=== PATIENT | female | born 1995 | race African-American/Black ===

== ENCOUNTER 2019-01-10 21:22 | Inpatient (IN) | payer OTHER ==
[2019-01-10 22:05] VITALS: BMI 28.8
--- NOTE | 2019-01-11 01:23 | HP ---
CIWA Score - Admission Criteria [facility]ASAS Guidelines: Admission for Medically Managed Detox: Requires at least one of the followin. CIWA greater than 12 2. Seizures within the past 24 hours 3. Delirium tremens within the past 24 hours 4. Hallucinations within the past 24 hours 5. Acute intervention needed for co occurring medical disorder 6. Acute intervention needed for co occurring psychiatric disorder 7. Severe withdrawal that cannot be handled at a lower level of care (continued vomiting, continued diarrhea, abnormal vital signs) requiring intravenous medication and/or fluids 8. Admission ROS S - HPI Chief Complaint: Seeking admission to Rehab Allergies/Adverse Reactions: Allergies Allergy/AdvReac Type Severity Reaction Status Date / Time peanut AdvReac Severe Difficulty Verified 01/10/19 21:58 Breathing acetaminophen [From Tylenol] AdvReac Intermediate Swelling Verified 01/10/19 21: 58 History of Present Illness: 23 years old female with a long history of cocaine dependence is seeking admission to Rehab. This is her first admission to [facility] and first admission to Rehab. She has medical history of Seizures and psych history of PTSD, bipolar, borderline personality disorder. She denies suicidal ideation at this this time Exam Limitations: No Limitations - Ebola screening Have you traveled outside of the country in the last 21 days: No (N) Have you had contact with anyone from an Ebola affected area: No Do you have a fever: No - Review of Systems Constitutional: No Symptoms Reported EENT: reports: No Symptoms Reported Respiratory: reports: No Symptoms reported Cardiac: reports: No Symptoms Reported GI: reports: No Symptoms Reported : reports: No Symptoms Reported Musculoskeletal: reports: No Symptoms Reported Integumentary: reports: No Symptoms Reported Neuro: reports: No Symptoms reported Endocrine: reports: No Symptoms Reported Hematology: reports: No Symptoms Reported Psychiatric: reports: No Sypmtoms Reported, Mood/Affect Appropiate, Orientated x3 Other Systems: Reviewed and Negative Patient History - Patient Medical History Hx Anemia: No Hx Asthma: No Hx Chronic Obstructive Pulmonary Disease (COPD): No Hx Cancer: No Hx Cardiac Disorders: No Hx Congestive Heart Failure: No Hx Hypertension: No Hx Hypercholesterolemia: No Hx Pacemaker: No HX Cerebrovascular Accident: No Hx Seizures: Yes (Tegretol) Hx Dementia: No Hx Diabetes: No Hx Gastrointestinal Disorders: No Hx Liver Disease: No Hx Genitourinary Disorders: No Hx Sexually Transmitted Disorders: No Hx Renal Disease (ESRD): No Hx Thyroid Disease: No Hx Human Immunodeficiency Virus (HIV): No (Never tested) Hx Hepatitis C: No Hx Depression: No Hx Suicide Attempt: No (Denies suicidal ideation at this time) Hx Bipolar Disorder: No Hx Schizophrenia: No - Patient Surgical History Past Surgical History: No - PPD History Previous Implant?: Yes Documented Results: Negative w/o proof Implanted On Prior R Admission?: No PPD to be Administered?: Yes - Reproductive History Patient is a Female of Child Bearing Age (11 -55 yrs old): Yes Last Menstrual Period: 12/20/18 Patient : No - Smoking Cessation Smoking history: Never smoked Have you smoked in the past 12 months: No Hx Chewing Tobacco Use: No Initiated information on smoking cessation: No - Substance & Tx. History Hx Alcohol Use: No Hx Substance Use: Yes Substance Use Type: Cocaine Hx Substance Use Treatment: No - Substances abused Cocaine Substance route: Inhalation Frequency: Daily Amount used: 3 bags Age of first use: 17 Date of last use: 01/10/19 Admission Physical Exam [facility] - Vital Signs Vital Signs: Vital Signs - 24 hr 01/10/19 01/10/19 21:48 23:37 Temperature 98.3 F 98.3 F Pulse Rate 80 80 Respiratory 17 17 Rate Blood Pressure 101/62 101/62 - Physical General Appearance: Yes: Within Normal Limits, Disheveled HEENTM: Yes: Within Normal Limits Respiratory: Yes: Lungs Clear, Normal Breath Sounds, No Respiratory Distress Neck: Yes: Supple Breast: Yes: Breast Exam Deferred Cardiology: Yes: Regular Rhythm, Regular Rate Abdominal: Yes: Normal Bowel Sounds Genitourinary: Yes: Within Normal Limits Back: Yes: Normal Inspection Musculoskeletal: Yes: Within Normal Limits Extremities: Yes: Within Normal Limits Neurological: Yes: Within Normal Limits Integumentary: Yes: Warm Lymphatic: Yes: Within Normal Limits - Diagnostic (1) Cocaine dependence Current Visit: Yes Status: Chronic Qualifiers: Substance use status: uncomplicated Qualified Code(s): F14.20 - Cocaine dependence, uncomplicated (2) Nicotine dependence Current Visit: Yes Status: Chronic (3) Seizure Current Visit: Yes Status: Chronic Cleared for Admission S - Detox or Rehab [facility] Level of Care: Observation Bed Claeared for Rehab Admission: Yes Breathalyzer - Breathalyzer Breathalyzer: 0 Urine Drug Screen - Test Device Lot number: [id number] Expiration date: 09/05/20 - Control Is test valid?: Yes - Results Drug screen NEGATIVE: Yes Inpatient Rehab Admission - Rehab Decision to Admit Inpatient rehab admission?: Yes - Initial Determination Are CD services needed?: No Free of communicable disease: Yes Not in need of hospitalization: Yes - Rehab Admission Criteria Previous failed treatment: Yes Poor recovery environment: Yes Comorbidities: Yes Lacks judgement: No Patient is meeting Inpatient Rehab admission criteria:: Yes
[2019-01-11] MEDS ORDERED: MENTHOL/PHENOL 1 EACH UD MM PRN (01:31)
[2019-01-11] MEDS ORDERED: LOPERAMIDE HCL 2 MG CAPSULE PO PRN (01:31)
[2019-01-11] MEDS ORDERED: IBUPROFEN 400 MG TABLET (FP) PO PRN (01:31)
[2019-01-11] MEDS ORDERED: guaiFENesin 200 MG/10 ML 10 ML UNIT-DOSE CUPS PO PRN (01:31)
[2019-01-11] MEDS ORDERED: MAGNESIUM HYDROX 2400MG/30ML ORAL SUSPENSION 30 ML CUP PO PRN (01:31)
[2019-01-11] MEDS ORDERED: P-EPHED 60MG/TRIPROLIDI 2.5MG TABLET PO PRN (01:31)
[2019-01-11] MEDS ORDERED: MAG HYDROX/AL HYDROX/SIMETH 30 ML UNIT-DOSE CUP PO PRN (01:31)
[2019-01-11] MEDS ORDERED: MAGNESIUM CITRATE 300 ML BOTTLE PO PRN (01:31)
[2019-01-11] MEDS ORDERED: TUBERCULIN PPD 5 TU/0.1ML VIAL ID ONE (02:35)
[2019-01-11] MEDS ORDERED: PT OWN MED DRAWER 7, Y5N ONE (08:18)
--- NOTE | 2019-01-11 09:59 | CONSULT ---
[facility] Psychiatric Consult - Data Date of interview: 01/11/19 Admission source: [facility] Identifying data: VAMSHI Chaudhry asked patient in the presence of internal communications writer to see the Psychiatric Mental Nurse Practitioner. Patient rolled her eyes and covered her head with the blank. Psychiatric consultation refused.
[2019-01-11] MEDS: PRENATAL VITAMINS W/ FOLIC ACID TABLET (FP) PO SCH (10:39)
[2019-01-11] MEDS: carBAMazepine 200 MG TABLET PO SCH ×2 (10:39→22:02)
--- NOTE | 2019-01-11 11:31 | EKG ---
Test Reason : Blood Pressure : / mmHG Vent. Rate : 062 BPM Atrial Rate : 062 BPM P-R Int : 146 ms QRS Dur : 072 ms QT Int : 412 ms P-R-T Axes : 063 085 067 degrees QTc Int : 418 ms NORMAL SINUS RHYTHM NORMAL ECG NO PREVIOUS ECGS AVAILABLE Confirmed by DYLAN CABRERA MD ([id number]) on 01/11/2019 11:31:00 AM Referred By: Nick Sánchez Confirmed By:DYLAN CABRERA MD
[2019-01-11 15:00] LABS: HEMATOCRIT 35.6 % (32.4-45.2); HEMOGLOBIN 11.4 GM/dL (10.7-15.3); MCH 27.8 pg (25.7-33.7); MEAN CELL VOLUME 86.8 fl (80-96); MEAN PLT VOLUME 7.9 fl (7.5-11.1); PLATELET COUNT 342 K/MM3 (134-434); RDW 12.9 % (11.6-15.6); WHITE BLOOD COUNT 4.5 K/mm3 (4.0-10.0)
[2019-01-11 15:16] LABS: ALBUMIN 3.1 g/dl (3.4-5.0); BILIRUBIN,TOTAL 0.2 mg/dL (0.2-1); BLOOD UREA NITROGEN 7.7 mg/dL (7-18); CALCIUM 9.2 mg/dL (8.5-10.1); CREATININE 0.8 mg/dL (0.55-1.3); POTASSIUM 4.4 mmol/L (3.5-5.1); TOT PROT 6.9 g/dl (6.4-8.2)
[2019-01-11] MEDS ORDERED: MELATONIN 5 MG TABLETS PO PRN (22:00)
[2019-01-11] MEDS: THIAMINE HCL 100 MG TABLET (FP) PO SCH (22:02)
[2019-01-12] MEDS ORDERED: PT OWN MED DRAWER 7, Y5N ONE ×2 (09:02→21:12)
[2019-01-12] MEDS: carBAMazepine 200 MG TABLET PO SCH ×2 (10:07→21:12)
[2019-01-12] MEDS: PRENATAL VITAMINS W/ FOLIC ACID TABLET (FP) PO SCH (10:07)
--- NOTE | 2019-01-12 15:06 | PN ---
[facility] Progress Note Note: Laboratory Last Values WBC 4.5 K/mm3 (4.0-10.0) 01/11/19 10:00 RBC 4.10 M/mm3 (3.60-5.2) 01/11/19 10:00 Hgb 11.4 GM/dL (10.7-15.3) 01/11/19 10:00 Hct 35.6 % (32.4-45.2) 01/11/19 10:00 MCV 86.8 fl (80-96) 01/11/19 10:00 MCH 27.8 pg (25.7-33.7) 01/11/19 10:00 MCHC 32.0 g/dl (32.0-36.0) 01/11/19 10:00 RDW 12.9 % (11.6-15.6) 01/11/19 10:00 Plt Count 342 K/MM3 (134-434) 01/11/19 10:00 MPV 7.9 fl (7.5-11.1) 01/11/19 10:00 Sodium 140 mmol/L (136-145) 01/11/19 10:00 Potassium 4.4 mmol/L (3.5-5.1) 01/11/19 10:00 Chloride 108 mmol/L (98-107) H 01/11/19 10:00 Carbon Dioxide 26 mmol/L (21-32) 01/11/19 10:00 Anion Gap 7 MMOL/L (8-16) L 01/11/19 10:00 BUN 7.7 mg/dL (7-18) 01/11/19 10:00 Creatinine 0.8 mg/dL (0.55-1.3) 01/11/19 10:00 Est GFR (CKD-EPI)AfAm 118.76 01/11/19 10:00 Est GFR (CKD-EPI)NonAf 102.47 01/11/19 10:00 Random Glucose 95 mg/dL (74-106) 01/11/19 10:00 Calcium 9.2 mg/dL (8.5-10.1) 01/11/19 10:00 Total Bilirubin 0.2 mg/dL (0.2-1) 01/11/19 10:00 AST 15 U/L (15-37) 01/11/19 10:00 ALT 23 U/L (13-61) 01/11/19 10:00 Alkaline Phosphatase 54 U/L (45-117) 01/11/19 10:00 Total Protein 6.9 g/dl (6.4-8.2) 01/11/19 10:00 Albumin 3.1 g/dl (3.4-5.0) L 01/11/19 10:00 POC Urine HCG, Qual Negative 01/11/19 01:06 Carbamazepine <0.5 01/11/19 10:00 RPR Titer Nonreactive (NONREACTIVE) 01/11/19 10:00 tegretol level <0.5 on tegretol 500 mgs po bid close monitoring repeat tegretol on 01/14/19
[2019-01-12 15:13] LABS: EPI CELLS 3.8 /HPF (0-5/HPF); HYALINE CASTS 13 /lpf (0-8); URINE APPEARANCE CLOUDY; URINE BACTERIA 8.9 /hpf (NEGATIVE); URINE BILIRUBIN NEGATIVE (NEGATIVE); URINE COLOR YELLOW; URINE GLUCOSE (UA) NEGATIVE (NEGATIVE); URINE KETONE TRACE (NEGATIVE); URINE LEUK ESTERASE 2+ (NEGATIVE); URINE NITRITE NEGATIVE (NEGATIVE); URINE PROTEIN NEGATIVE (NEGATIVE); URINE RBC 3 /hpf (0-4); URINE UROBILINOGEN 0.2 mg/dL (0.2-1.0); URINE WBC 32 /hpf (0-5)
[2019-01-12 15:39] LABS: URINE CRYSTALS 0-1 CALCIUM OXALATE /hpf
--- NOTE | 2019-01-12 15:41 | PN ---
[facility] Progress Note Note: addendum patient is on tegretol 200 mgs po bid
[2019-01-12] MEDS: THIAMINE HCL 100 MG TABLET (FP) PO SCH (21:11)
--- NOTE | 2019-01-13 01:38 | PN ---
[facility] Progress Note Note: Called to see patient because change in patient status. States patient was asleep and at 1:10 am was seen in the lea w/ unsteady gait and unable to respond verbally. Patient admitted on 01/11 w/a hx cocaine use disorder and seizure disorder. Patient on Tegretol. 01/11/19: Carbamazepine level < 5 Assessment: Patient sitting in chair and responding to verbal commands. BHG=; Gait is unsteady. Opening mouth and thrusting tongue unable to obtain complete visualization. No lesions noted. No dyspnea. Lungs CTA. VALARIE. BGM = 90; Pulse ox = 99% Vital Signs - 24 hr 01/12/19 01/13/19 03:30 01:38 Temperature 98.4 F Pulse Rate 90 Respiratory 16 16 Rate Blood Pressure 109/73 Sent to [facility] ED for eval. Discussed w/ Med Provider in ED. Patient to return to [facility] post eval. Patient assisted self onto EMS stretcher and transported.
--- NOTE | 2019-01-13 09:13 | PN ---
[facility] Progress Note Note: patient returned from [facility],alert,oriented x 3,mentioned I am fine Vital Signs Temperature 97.0 F L 01/13/19 09:08 Pulse Rate 71 01/13/19 09:08 Respiratory Rate 18 01/13/19 09:08 Blood Pressure 118/71 01/13/19 09:08 O2 Sat by Pulse Oximetry (%) has ct of head done in [place] at [email or web address]pending on official report augmentin 875 mgs po bid for 7 days for sinusitis patient is afebrile continue augmentin 875 mgs po bid for 7 days seizure precaution psychiatric reevaluation for medications continue tegretal 200 mgs po bid close monitoring
[2019-01-13] MEDS: PRENATAL VITAMINS W/ FOLIC ACID TABLET (FP) PO SCH (09:34)
[2019-01-13] MEDS: carBAMazepine 200 MG TABLET PO SCH ×2 (09:34→21:24)
[2019-01-13] MEDS: AMOX TR/POT CLAV 875MG/125MG TABLETS (FP) PO SCH (17:05)
[2019-01-13] MEDS: THIAMINE HCL 100 MG TABLET (FP) PO SCH (21:24)
[2019-01-14] MEDS: AMOX TR/POT CLAV 875MG/125MG TABLETS (FP) PO SCH ×2 (07:39→17:09)
[2019-01-14] MEDS ORDERED: EPINEPHrine 1:1,000 0.3 MG/0.3 ML SYR IM PRN (08:47)
[2019-01-14] MEDS: PRENATAL VITAMINS W/ FOLIC ACID TABLET (FP) PO SCH (10:25)
[2019-01-14] MEDS: carBAMazepine 200 MG TABLET PO SCH ×2 (10:25→21:47)
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
[2019-01-14] MEDS ORDERED: OLANZapine 10 MG TABLET PO ONE (12:00)
[2019-01-14] MEDS: LITHIUM CARBONATE 300 MG CAPSULE (FP) PO SCH ×2 (13:00→21:47)
[2019-01-14] MEDS: buPROPion HCL 75 MG TABLET PO SCH ×2 (13:00→17:09)
[2019-01-14] MEDS ORDERED: PT OWN MED DRAWER 7, Y5N ONE ×2 (16:44→19:21)
[2019-01-14] MEDS: OLANZapine 10 MG TABLET PO SCH (21:47)
[2019-01-14] MEDS: THIAMINE HCL 100 MG TABLET (FP) PO SCH (21:47)
[2019-01-15] MEDS: AMOX TR/POT CLAV 875MG/125MG TABLETS (FP) PO SCH ×2 (07:47→16:48)
[2019-01-15] MEDS: carBAMazepine 200 MG TABLET PO SCH ×2 (10:36→21:43)
[2019-01-15] MEDS: buPROPion HCL 75 MG TABLET PO SCH ×2 (10:36→18:07)
[2019-01-15] MEDS: PRENATAL VITAMINS W/ FOLIC ACID TABLET (FP) PO SCH (10:36)
[2019-01-15] MEDS: LITHIUM CARBONATE 300 MG CAPSULE (FP) PO SCH ×2 (10:36→21:43)
[2019-01-15] MEDS ORDERED: PT OWN MED DRAWER 7, Y5N ONE ×2 (17:59→19:32)
[2019-01-15] MEDS: OLANZapine 10 MG TABLET PO SCH (21:44)
[2019-01-15] MEDS: THIAMINE HCL 100 MG TABLET (FP) PO SCH (21:44)
[2019-01-16] MEDS: AMOX TR/POT CLAV 875MG/125MG TABLETS (FP) PO SCH ×2 (07:40→17:30)
[2019-01-16] MEDS ORDERED: PT OWN MED DRAWER 7, Y5N ONE (08:47)
[2019-01-16] MEDS: buPROPion HCL 75 MG TABLET PO SCH ×2 (09:13→18:30)
[2019-01-16] MEDS: PRENATAL VITAMINS W/ FOLIC ACID TABLET (FP) PO SCH (09:13)
[2019-01-16] MEDS: LITHIUM CARBONATE 300 MG CAPSULE (FP) PO SCH ×2 (09:13→22:01)
[2019-01-16] MEDS: carBAMazepine 200 MG TABLET PO SCH ×2 (09:13→22:01)
[2019-01-16] MEDS ORDERED: ONDANSETRON *ODT* 4 MG TABLET SL ONE (13:58)
--- NOTE | 2019-01-16 14:01 | PREP.REFER ---
HIV PrEP/PEP - PrEP HIV Risk Assessment When was your last HIV test?: none HIV Test offered: Accepted Are you concerned about any sexual encounters past 6 months?: No Have you had a STI in the last 6 months?: No Have you shared needles or other equipment?: No Are you interested in daily medication to help prevent HIV?: No (patient denies any risk factors, but agreed to an HIV test.) Recommendation: None at this time
[2019-01-16] MEDS: THIAMINE HCL 100 MG TABLET (FP) PO SCH (22:02)
[2019-01-16] MEDS: OLANZapine 10 MG TABLET PO SCH (22:02)
[2019-01-17] MEDS: AMOX TR/POT CLAV 875MG/125MG TABLETS (FP) PO SCH ×2 (07:36→17:40)
[2019-01-17] MEDS: carBAMazepine 200 MG TABLET PO SCH ×2 (10:22→21:19)
[2019-01-17] MEDS: PRENATAL VITAMINS W/ FOLIC ACID TABLET (FP) PO SCH (10:22)
[2019-01-17] MEDS: buPROPion HCL 75 MG TABLET PO SCH ×2 (10:22→17:40)
[2019-01-17] MEDS: LITHIUM CARBONATE 300 MG CAPSULE (FP) PO SCH ×2 (10:23→21:19)
[2019-01-17] MEDS ORDERED: PT OWN MED DRAWER 7, Y5N ONE ×2 (10:24→16:34)
[2019-01-17] MEDS: THIAMINE HCL 100 MG TABLET (FP) PO SCH (21:18)
[2019-01-17] MEDS: OLANZapine 10 MG TABLET PO SCH (21:18)
[2019-01-18] MEDS: AMOX TR/POT CLAV 875MG/125MG TABLETS (FP) PO SCH ×2 (07:18→17:42)
[2019-01-18] MEDS: PRENATAL VITAMINS W/ FOLIC ACID TABLET (FP) PO SCH (10:26)
[2019-01-18] MEDS: buPROPion HCL 75 MG TABLET PO SCH ×2 (10:27→17:42)
[2019-01-18] MEDS: LITHIUM CARBONATE 300 MG CAPSULE (FP) PO SCH ×2 (10:27→21:24)
[2019-01-18] MEDS: carBAMazepine 200 MG TABLET PO SCH ×2 (10:27→21:24)
[2019-01-18] MEDS ORDERED: PT OWN MED DRAWER 7, Y5N ONE ×3 (10:35→19:37)
[2019-01-18] MEDS: OLANZapine 10 MG TABLET PO SCH (21:24)
[2019-01-18] MEDS: THIAMINE HCL 100 MG TABLET (FP) PO SCH (21:24)
[2019-01-19] MEDS ORDERED: PT OWN MED DRAWER 7, Y5N ONE ×2 (08:57→17:52)
[2019-01-19] MEDS: AMOX TR/POT CLAV 875MG/125MG TABLETS (FP) PO SCH ×2 (09:00→17:52)
[2019-01-19] MEDS: carBAMazepine 200 MG TABLET PO SCH (09:06)
[2019-01-19] MEDS: LITHIUM CARBONATE 300 MG CAPSULE (FP) PO SCH (09:06)
[2019-01-19] MEDS: PRENATAL VITAMINS W/ FOLIC ACID TABLET (FP) PO SCH (09:07)
[2019-01-19] MEDS: buPROPion HCL 75 MG TABLET PO SCH ×2 (09:07→17:52)
--- NOTE | 2019-01-19 18:50 | PN ---
Psychiatric Progress Note Vital Signs: Vital Signs Period Temp Pulse Resp BP Sys/Grande Pulse Ox Last 24 Hr 18 Date of Session: 01/19/19 Chief Complaint:: " I am hearing voices telling me to kill people. I am scared. " HPI: Day 8 of rehabilitation for this 23 y/o AA female currently addressing JOANIE (cocaine) co-morbid with Schizoaffective Disorder. Psychiatric consultation is prompted by patient's complaint of command auditory hallucinations to kill people indiscriminately. Ms Barriga is immediately placed under Constant Observation (health technical writer observes RN currently watching the patient at arm's length). ROS: Unremarkable. No somatic complaint offered. Patient is alert and fully oriented. No evidence of a cognitive impairment. Conversant and goal-directed. Noted current treatment with anticonvulsant medication (carbamazepine) for seizure disorder. Current Medications: Active Medications Generic Name Dose Route Start Last Admin Trade Name Freq PRN Reason Stop Dose Admin Al Hydroxide/Mg Hydroxide 30 ml 01/11/19 01:31 Mylanta Oral Suspension - PO Q6H PRN DYSPEPSIA Amoxicillin/Clavulanate Potassium 1 tab 01/13/19 17:30 01/19/19 17:52 Augmentin - 875mg Tablet PO 1 tab BID@0800,1730 FRANSISCO Administration Bupropion HCl 75 mg 01/14/19 12:00 01/19/19 17:52 Wellbutrin - PO 75 mg BID@1000,1800 FRANSISCO Administration Carbamazepine 200 mg 01/11/19 10:00 01/19/19 09:06 Tegretol - PO 200 mg BID FRANSISCO Administration Eucalyptus/Menthol/Phenol/Sorbitol 1 each 01/11/19 01:31 Cepastat Lozenge - MM Q4H PRN SORE THROAT Guaifenesin 10 ml 01/11/19 01:31 Robitussin - PO Q6H PRN COUGH Ibuprofen 400 mg 01/11/19 01:31 Motrin - PO Q6H PRN Pain level 4-6 [place] Carbonate 300 mg 01/14/19 12:00 01/19/19 09:06 Eskalith - PO 300 mg BID FRANSISCO Administration Loperamide HCl 4 mg 01/11/19 01:31 Imodium - PO Q6H PRN DIARRHEA Magnesium Citrate 300 ml 01/11/19 01:31 Citroma - PO Q48H PRN CONSTIPATION Magnesium Hydroxide 30 ml 01/11/19 01:31 Milk Of Magnesia - PO DAILY PRN CONSTIPATION Melatonin 5 mg 01/11/19 22:00 Melatonin PO HS PRN INSOMNIA Olanzapine 10 mg 01/14/19 22:00 01/18/19 21:24 Zyprexa - PO 10 mg HS FRANSISCO Administration Multivit/Folic Acid/Iron 1 tab 01/11/19 10:00 01/19/19 09:07 Vitamins (Sjr) - PO 1 tab DAILY FRANSISCO Administration Pseudoephedrine/Triprolidine 1 combo 01/11/19 01:31 Actifed - PO TID PRN NASAL CONGESTION Thiamine HCl 100 mg 01/11/19 22:00 01/18/19 21:24 Vitamin B1 - PO Not Given HS FRANSISCO Medication(s) Change(s): Medications revisited. No justification to modify the current regimen. Further titration will be implemented on the psychiatric inpatient service at the receiving hospital. Medications are listed above (see details). Current Side Effect: No Lab tests ordered: No Lab tests reviewed: Yes Provider note:: Called to evaluate this patient who presents with acute auditory hallucinations commanding her to kill people. Chart reviewed. Psychiatrist Dr Bates's note of 01/11/19 : read and appreciated. Patient is interviewed in the presence of female nurse VAMSHI Licona. Patient is verbal, cooperative and visibly anxious. She confirms hearing voices urging her to assault + kill people anywhere. Ms Barriga is concerned about these voices. She reports that " the voices were with me when my father and my stepmother visited me her earlier today but I did not tell them anything because I was afraid that they would be worried about me." Patient is unpredictable. Noted history of multiple episodes of impulsive behaviors (suicide attempts via jumping into traffic, train tracks) in response to hallucinatory commands. This patient is NOT suitable for treatment in a free-standing substance abuse treatment center. Ms Barriga is currently psychotic and she could pose an immediate danger to others (and possibly to self). Patient needs a HIGHER level of psychiatric care. She will be transferred to the psychiatric emergency department at [facility] for appropriate management and safety. I have contacted [facility] at [phone] : spoke to nurse Oliveros. Case is endorsed. I made nurse Oliveros aware this patient's high risk status (risk of escalation + harm to others or self + potential for elopement). I have advised nurse Arlin to maintain vigilance (1:1 observatiion) while [atient awaits psychiatric evaluation. She agrees. Nurse Oliveros responds that the patient can be sent to [facility] as soon as arrangements for transportation made. Fred is in agreement. Case discussed with nurse on duty at [place] [address] [address] : instructed to secure transportation via EMS/[place] [employer] to optimize secure transfer to [facility] Emergency Department (psychiatric section). Disposition discussed with medical PROFESSIONAL SERVICES CONSULTANT Rachell Rothman. Total face to face time:: 65 Mental Status Exam - Mental Status Exam Alert and Oriented to: Time, Place, Person Cognitive Function: Grossly Intact Patient Appearance: Disheveled, Bizarre Mood: Anxious Affect: Inappropriate Patient Behavior: Cooperative Speech Pattern: Clear Voice Loudness: Normal Thought Process: Goal Oriented Thought Disorder: Bizarre Hallucinations: Auditory (hears voices commanding her to kill people) Suicidal Ideation: Denies Homicidal Ideation: Denies Insight/Judgement: Poor Sleep: Fair Appetite: Good Gait/Station: Normal Psychiatric Treatment Plan - Problem List (1) Psychosis Current Visit: Yes Comment: . (2) Schizoaffective disorder Current Visit: Yes Comment: . (3) Cocaine dependence Current Visit: Yes Qualifiers: Substance use status: uncomplicated Qualified Code(s): F14.20 - Cocaine dependence, uncomplicated Comment: . (4) Nicotine dependence Current Visit: Yes Comment: .
--- NOTE | 2019-01-19 19:29 | PN ---
[facility] Progress Note Note: Patient has made statements that she wants to physically harm others. Psych consult initiated and patient seen by Dr. Braga. Patient is medically stable and can be discharged. Per Dr. Braga, patient will be transferred to [facility]
--- NOTE | 2019-01-19 19:51 | DS ---
[facility] Rehab Discharge Summary - [facility] Rehab Discharge Summary Admission Date: 01/11/19 Discharge Date: 01/19/19 - History Present History: Cocaine dependence Additional Comments: Hx of cocaine use disorder seeking admission to Rehab. Pertinent Past History: She has medical history of Seizures. MHHx: PTSD, bipolar, borderline personality disorder. She denied suicidal ideation at admission. - Discharge Physical Exam Vital Signs: Vital Signs Temperature 98.2 F 01/18/19 07:08 Pulse Rate 99 H 01/18/19 07:08 Respiratory Rate 18 01/19/19 03:30 Blood Pressure 111/71 01/18/19 07:08 O2 Sat by Pulse Oximetry (%) Pertinent Admission Physical Exam Findings: Hx cocaine dependence and meets requirements for admission to Rehab. Laboratory Last Values WBC 4.5 K/mm3 (4.0-10.0) 01/11/19 10:00 RBC 4.10 M/mm3 (3.60-5.2) 01/11/19 10:00 Hgb 11.4 GM/dL (10.7-15.3) 01/11/19 10:00 Hct 35.6 % (32.4-45.2) 01/11/19 10:00 MCV 86.8 fl (80-96) 01/11/19 10:00 MCH 27.8 pg (25.7-33.7) 01/11/19 10:00 MCHC 32.0 g/dl (32.0-36.0) 01/11/19 10:00 RDW 12.9 % (11.6-15.6) 01/11/19 10:00 Plt Count 342 K/MM3 (134-434) 01/11/19 10:00 MPV 7.9 fl (7.5-11.1) 01/11/19 10:00 Sodium 140 mmol/L (136-145) 01/11/19 10:00 Potassium 4.4 mmol/L (3.5-5.1) 01/11/19 10:00 Chloride 108 mmol/L (98-107) H 01/11/19 10:00 Carbon Dioxide 26 mmol/L (21-32) 01/11/19 10:00 Anion Gap 7 MMOL/L (8-16) L 01/11/19 10:00 BUN 7.7 mg/dL (7-18) 01/11/19 10:00 Creatinine 0.8 mg/dL (0.55-1.3) 01/11/19 10:00 Est GFR (CKD-EPI)AfAm 118.76 01/11/19 10:00 Est GFR (CKD-EPI)NonAf 102.47 01/11/19 10:00 POC Glucometer 90 UNITS (80-120) 01/13/19 01:33 Random Glucose 95 mg/dL (74-106) 01/11/19 10:00 Calcium 9.2 mg/dL (8.5-10.1) 01/11/19 10:00 Total Bilirubin 0.2 mg/dL (0.2-1) 01/11/19 10:00 AST 15 U/L (15-37) 01/11/19 10:00 ALT 23 U/L (13-61) 01/11/19 10:00 Alkaline Phosphatase 54 U/L (45-117) 01/11/19 10:00 Total Protein 6.9 g/dl (6.4-8.2) 01/11/19 10:00 Albumin 3.1 g/dl (3.4-5.0) L 01/11/19 10:00 Urine Color Yellow 01/12/19 13:02 Urine Appearance Cloudy 01/12/19 13:02 Urine pH 5.0 (5.0-8.0) 01/12/19 13:02 Ur Specific [place] 1.027 (1.010-1.035) 01/12/19 13:02 Urine Protein Negative (NEGATIVE) 01/12/19 13:02 Urine Glucose (UA) Negative (NEGATIVE) 01/12/19 13:02 Urine Ketones Trace (NEGATIVE) H 01/12/19 13:02 Urine Blood Negative (NEGATIVE) 01/12/19 13:02 Urine Nitrite Negative (NEGATIVE) 01/12/19 13:02 Urine Bilirubin Negative (NEGATIVE) 01/12/19 13:02 Urine Urobilinogen 0.2 mg/dL (0.2-1.0) 01/12/19 13:02 Ur Leukocyte Esterase 2+ (NEGATIVE) H 01/12/19 13:02 Urine WBC (Auto) 32 /hpf (0-5) 01/12/19 13:02 Urine RBC (Auto) 3 /hpf (0-4) 01/12/19 13:02 Urine Casts (Auto) 13 /lpf (0-8) 01/12/19 13:02 U Epithel Cells (Auto) 3.8 /HPF (0-5/HPF) 01/12/19 13:02 Urine Crystals (Auto) 0-1 calcium oxalate /hpf 01/12/19 13:02 Urine Bacteria (Auto) 8.9 /hpf (NEGATIVE) 01/12/19 13:02 POC Urine HCG, Qual Negative 01/11/19 01:06 Carbamazepine 7.7 01/14/19 08:30 RPR Titer Nonreactive (NONREACTIVE) 01/11/19 10:00 HIV 1&2 Ag/Ab, 4th Gen Non reactive (Non Reactive) 01/17/19 08:00 Labs reviewed. - Treatment Discharge Condition: Discharge condition good (Medically stable. Cocaine use in early remission.) Hospital Course: Patient has made statements that she wants to physically harm others. Psych consult initiated and patient seen by Dr. Braga. Patient is medically stable for discharge. Patient transferred to [facility]. - Medication Discharge Medications: Ambulatory Orders Carbamazepine [Tegretol -] 200 mg PO BID 01/10/19 [place] Carbonate [Eskalith -] 300 mg PO BID 01/10/19 Amox-Tr/K Cl [Augmentin - 875Mg Tablet] 1 tab PO BID #14 tablet 01/13/19 - Medication-Assisted Treatment (MAT) Medication-Assisted Treatment (MAT): No - Discharge Instructions Diet, activity, other medical instructions: Diet: Activity: Ad shane Other medical instructions: Referral to [facility] for mental health evaluation and treatment, as needed. - Diagnosis (1) Cocaine dependence Current Visit: Yes Status: Acute Qualifiers: Substance use status: uncomplicated Qualified Code(s): F14.20 - Cocaine dependence, uncomplicated (2) Nicotine dependence Current Visit: Yes Status: Chronic Qualifiers: Nicotine product type: cigarettes (3) Episode of abnormal behavior Current Visit: Yes Status: Acute - Follow-up Referral Minutes to complete discharge: 20 - AMA Did Patient Leave Against Medical Advice: No
--- NOTE | 2019-01-19 21:46 | PN ---
[facility] Progress Note Note: Psychiatry Attending's note (addendum) : Spoke via telephone with Dr Schwartz. At [phone]. Around 7:52 PM, today, prior to patient's transfer to [facility]. Case discussed, in detail, with Dr Schwartz (coverage psychiatrist). Discussed : Reason for transfer, diagnosis, longitudinal history, current risk level and medications. Dr Schwartz is made aware of patient's current medical condition (seizure disorder). On carbamazepine. Case accepted.
--- NOTE | 2019-01-20 03:23 | PN ---
[facility] Progress Note Note: MILLY RETURNED FROM [facility] AFTER BEING PSYCH CLEARED FOR SI/ HI. SPOKE WITH DR. LOVE WHO STATED SHE SPOKE WITH DR. WILLIS AND CLIENT MAY RETURN FOR CONTINUATION OF TXMENT. CLIENT IS A/O X3 NAD. PRESENTLY DENIES ANY SI/HI./AVH. DR. WILLIS INFORMED OF CLIENT RETURN. PSYCH EVAL IN A.M.
[2019-01-20] MEDS: THIAMINE HCL 100 MG TABLET (FP) PO SCH ×2 (03:44→21:42)
[2019-01-20] MEDS: carBAMazepine 200 MG TABLET PO SCH ×3 (03:44→21:42)
[2019-01-20] MEDS: LITHIUM CARBONATE 300 MG CAPSULE (FP) PO SCH ×3 (03:44→21:42)
[2019-01-20] MEDS: OLANZapine 10 MG TABLET PO SCH ×2 (03:45→21:42)
[2019-01-20] MEDS ORDERED: PT OWN MED DRAWER 7, Y5N ONE (08:38)
[2019-01-20] MEDS: PRENATAL VITAMINS W/ FOLIC ACID TABLET (FP) PO SCH (09:03)
[2019-01-20] MEDS: AMOX TR/POT CLAV 875MG/125MG TABLETS (FP) PO SCH (09:04)
[2019-01-20] MEDS: buPROPion HCL 75 MG TABLET PO SCH ×2 (09:04→18:08)
[2019-01-20] MEDS ORDERED: OLANZapine 5 MG TABLET PO PRN (09:48)
--- NOTE | 2019-01-20 10:03 | PN ---
Psychiatric Progress Note Vital Signs: Vital Signs Period Temp Pulse Resp BP Sys/Grande Pulse Ox Last 24 Hr 98.0 F 82 18 108/73 Date of Session: 01/20/19 Chief Complaint:: re evaluation of patient HPI: Patient admitted to for cocaine dependence. Consultation ordered for re -evaulation of mental status after patient returned from [facility] psychiatric emergency room. ROS: Patient is coherent, alert + oriented X3. Current Medications: Active Medications Generic Name Dose Route Start Last Admin Trade Name Freq PRN Reason Stop Dose Admin Al Hydroxide/Mg Hydroxide 30 ml 01/11/19 01:31 Mylanta Oral Suspension - PO Q6H PRN DYSPEPSIA Amoxicillin/Clavulanate Potassium 1 tab 01/13/19 17:30 01/20/19 09:04 Augmentin - 875mg Tablet PO 1 tab BID@0800,1730 FRANSISCO Administration Bupropion HCl 75 mg 01/14/19 12:00 01/20/19 09:04 Wellbutrin - PO 75 mg BID@1000,1800 FRANSISCO Administration Carbamazepine 200 mg 01/11/19 10:00 01/20/19 09:03 Tegretol - PO 200 mg BID FRANSISCO Administration Eucalyptus/Menthol/Phenol/Sorbitol 1 each 01/11/19 01:31 Cepastat Lozenge - MM Q4H PRN SORE THROAT Guaifenesin 10 ml 01/11/19 01:31 Robitussin - PO Q6H PRN COUGH Ibuprofen 400 mg 01/11/19 01:31 Motrin - PO Q6H PRN Pain level 4-6 [place] Carbonate 300 mg 01/14/19 12:00 01/20/19 09:04 Eskalith - PO 300 mg BID FRANSISCO Administration Loperamide HCl 4 mg 01/11/19 01:31 Imodium - PO Q6H PRN DIARRHEA Magnesium Citrate 300 ml 01/11/19 01:31 Citroma - PO Q48H PRN CONSTIPATION Magnesium Hydroxide 30 ml 01/11/19 01:31 Milk Of Magnesia - PO DAILY PRN CONSTIPATION Melatonin 5 mg 01/11/19 22:00 Melatonin PO HS PRN INSOMNIA Olanzapine 10 mg 01/14/19 22:00 01/20/19 03:45 Zyprexa - PO Not Given HS FRANSISCO Olanzapine 5 mg 01/20/19 09:50 Zyprexa - PO Q12H PRN Hallucinations/irritability Multivit/Folic Acid/Iron 1 tab 01/11/19 10:00 01/20/19 09:03 Vitamins (Sjr) - PO 1 tab DAILY FRANSISCO Administration Pseudoephedrine/Triprolidine 1 combo 01/11/19 01:31 Actifed - PO TID PRN NASAL CONGESTION Thiamine HCl 100 mg 01/11/19 22:00 01/20/19 03:44 Vitamin B1 - PO Not Given HS FRANSISCO Medication(s) Change(s): Yes. Will order zyprexa 5mg PRN Q12 hours for hallucinations/irritability. Current Side Effect: No Lab tests ordered: No Lab tests reviewed: Yes Provider note:: Upon approach patient presents as tired, cooperative, alert + oriented X3. Patient seen by Dr. Bates and Dr. Braga. Notes read and appreciated. History of schizoaffective. Patient transferred to [facility] last night after patient endorsed to Dr. Braga that she was hearing voices urging her to assault + Kill others. Due to safety concerns and patient' s history of impulsive behaviors which includes multiple suicide attempts patient was transferred to [facility]. Patient evaluated by Dr. Power at [facility]. Paperwork reviewed and placed in patient's chart. Patient was transferred back to [facility] after patient denied thoughts or urges to hurt self or others and reported motivation to continue and complete rehab. This morning while speaking to patient, Ms. Barriga denied thoughts or urges to hurt self or others. She denies command auditory hallucinations. She reports continued motivation to complete rehab. States that she wants to stop using illicit substance but that it is difficult. States the voices yesterday was triggered after speaking to her brother whom encouraged her " to get her life together". Patient has been medication compliant since admission. Her thoughts are currently logical and goal directed. No psycosis noted. Patient stated to science writer that she is able to communicate with staff if she begins to endorse CAH to hurt self or others. Medications reviewed. In addition to patient's current medication regimen, will add zyprexa 5mg Q12 PRN for hallucinations/irritability. Patient in agreement with zyprexa PRN as needed. Patient satisifed and receptive to feedback. Benefits and side effects discussed. Verbal consent given. Total face to face time:: 35 Mental Status Exam - Mental Status Exam Alert and Oriented to: Time, Place, Person Cognitive Function: Good Patient Appearance: Well Groomed Mood: Withdrawn Affect: Appropriate Patient Behavior: Appropriate, Cooperative Speech Pattern: Clear, Appropriate Voice Loudness: Normal Thought Process: Goal Oriented Thought Disorder: Not Present Hallucinations: Denies Suicidal Ideation: Denies Homicidal Ideation: Denies Insight/Judgement: Poor Sleep: Fair Appetite: Fair Muscle strength/Tone: Normal Gait/Station: Normal Psychiatric Treatment Plan - Problem List (1) Cocaine dependence Current Visit: Yes Qualifiers: Substance use status: uncomplicated Qualified Code(s): F14.20 - Cocaine dependence, uncomplicated Comment: . (2) Substance-induced sleep disorder Current Visit: Yes (3) PTSD (post-traumatic stress disorder) Current Visit: Yes (4) Schizoaffective disorder Current Visit: Yes Comment: .
[2019-01-20] MEDS: OLANZapine 5 MG TABLET PO PRN (22:57)
[2019-01-21] MEDS ORDERED: PT OWN MED DRAWER 7, Y5N ONE ×4 (09:05→19:34)
[2019-01-21] MEDS: LITHIUM CARBONATE 300 MG CAPSULE (FP) PO SCH ×2 (10:07→21:31)
[2019-01-21] MEDS: carBAMazepine 200 MG TABLET PO SCH ×2 (10:07→21:31)
[2019-01-21] MEDS: PRENATAL VITAMINS W/ FOLIC ACID TABLET (FP) PO SCH (10:08)
[2019-01-21] MEDS: buPROPion HCL 75 MG TABLET PO SCH ×2 (10:08→17:57)
[2019-01-21] MEDS: THIAMINE HCL 100 MG TABLET (FP) PO SCH (21:30)
[2019-01-21] MEDS: OLANZapine 10 MG TABLET PO SCH (21:30)
--- NOTE | 2019-01-21 22:13 | PN ---
S Progress Note Note: Pt ordered for [place] level earlier today but refused to allow the candy cooker helper draw her blood. Pt reports no reason for refusal when asked. This development writer and nurse Maryse Cruz spoke to pt as she was standing by her room door way as the candy cooker helper waited for her to agree to test, explained to pt the therapeutic reason why it's necessary for lab test but pt vehemently refused flunging her head sideways each time she was asked while refusing. Pt was informed that the lab will come back to try again and see if she changed her mind for blood to be drawn. Vital Signs - 24 hr 01/21/19 01/21/19 01/21/19 00:30 03:30 06:30 Respiratory 18 18 18 Rate Alert o x 3 nad oob ambulating with steady gait A/P Noncompliant with medical care Maintain safety Follow up with pt/lab test as order request.
[2019-01-22] MEDS ORDERED: PT OWN MED DRAWER 7, Y5N ONE ×2 (08:58→16:37)
[2019-01-22] MEDS: buPROPion HCL 75 MG TABLET PO SCH ×2 (10:27→17:40)
[2019-01-22] MEDS: PRENATAL VITAMINS W/ FOLIC ACID TABLET (FP) PO SCH (10:27)
[2019-01-22] MEDS: LITHIUM CARBONATE 300 MG CAPSULE (FP) PO SCH ×2 (10:27→21:40)
[2019-01-22] MEDS: carBAMazepine 200 MG TABLET PO SCH ×2 (10:27→21:40)
[2019-01-22] MEDS: OLANZapine 5 MG TABLET PO PRN (15:00)
[2019-01-22] MEDS: OLANZapine 10 MG TABLET PO SCH (21:40)
[2019-01-22] MEDS: THIAMINE HCL 100 MG TABLET (FP) PO SCH (21:40)
[2019-01-23] MEDS ORDERED: PT OWN MED DRAWER 7, Y5N ONE ×2 (08:52→17:09)
[2019-01-23] MEDS: buPROPion HCL 75 MG TABLET PO SCH ×2 (10:31→17:35)
[2019-01-23] MEDS: carBAMazepine 200 MG TABLET PO SCH ×2 (10:31→21:47)
[2019-01-23] MEDS: LITHIUM CARBONATE 300 MG CAPSULE (FP) PO SCH ×2 (10:32→21:48)
[2019-01-23] MEDS: PRENATAL VITAMINS W/ FOLIC ACID TABLET (FP) PO SCH (10:32)
[2019-01-23 11:29] VITALS: BP 109/74; PULSE 105; TEMP 98.1
[2019-01-23] MEDS: OLANZapine 10 MG TABLET PO SCH (21:48)
[2019-01-23] MEDS: THIAMINE HCL 100 MG TABLET (FP) PO SCH (21:48)
[2019-01-24] MEDS ORDERED: PT OWN MED DRAWER 7, Y5N ONE ×4 (08:38→17:58)
[2019-01-24] MEDS: carBAMazepine 200 MG TABLET PO SCH ×2 (09:02→21:51)
[2019-01-24] MEDS: LITHIUM CARBONATE 300 MG CAPSULE (FP) PO SCH ×2 (09:02→21:51)
[2019-01-24] MEDS: PRENATAL VITAMINS W/ FOLIC ACID TABLET (FP) PO SCH (09:03)
[2019-01-24] MEDS: buPROPion HCL 75 MG TABLET PO SCH ×2 (09:03→17:58)
--- NOTE | 2019-01-24 10:50 | DS ---
[facility] Rehab Discharge Summary - [facility] Rehab Discharge Summary Admission Date: 01/11/19 Discharge Date: 01/25/19 - History Present History: Cocaine dependence Pertinent Past History: 23 years old female with a long history of cocaine dependence. This is her first admission to [facility] and first admission to Rehab. She has medical history of Seizures and psych history of PTSD, bipolar, borderline personality disorder. - Discharge Physical Exam Vital Signs: Vital Signs Temperature 98.1 F 01/23/19 10:40 Pulse Rate 105 H 01/23/19 10:40 Respiratory Rate 18 01/24/19 03:30 Blood Pressure 109/74 01/23/19 10:40 O2 Sat by Pulse Oximetry (%) Pertinent Admission Physical Exam Findings: General Appearance: No apparent distress HEENTM: Normocephalic Respiratory: Lungs Clear, Neck: Supple Cardiology: s1 s2 Abdominal: +Bowel Sounds Musculoskeletal: Full weight bearing, full ROM, steady gait Neurological: CN 2-12 intact - Treatment Discharge Condition: Outpatient referral accepted (patient will go to [facility]. Medically stable for discharge.) Hospital Course: patient attended groups, had 1:1 with her counselor, was seen by the psychiatric service. On 01/19, she made statements that she wanted to hurt people. She was seen by psychiatry and transferred to [facility] for further evaluation. On 01/20, she was cleared by [facility] and returned to rehab,. During the rest of her stay in rehab she was adherent to her medication regimen and treatment plan. She was offered PrEP referral, but refused. - Medication Discharge Medications: Ambulatory Orders Carbamazepine [Tegretol -] 200 mg PO BID 01/10/19 [place] Carbonate [Eskalith -] 300 mg PO BID 01/10/19 Amox-Tr/K Cl [Augmentin - 875Mg Tablet] 1 tab PO BID #14 tablet 01/13/19 Bupropion HCl [Wellbutrin -] 75 mg PO BID@1000,1800 #60 tablet 01/25/19 [place] Carbonate [Eskalith -] 300 mg PO BID #60 capsule 01/25/19 Olanzapine [ZyPREXA -] 10 mg PO HS #30 tablet 01/25/19 - Medication-Assisted Treatment (MAT) Medication-Assisted Treatment (MAT): No - Discharge Instructions Diet, activity, other medical instructions: Diet: as tolerated Activity: as tolerated Other medical instructions: Please follow up with aftercare referral. - Diagnosis (1) Cocaine dependence Status: Acute Qualifiers: Substance use status: uncomplicated Qualified Code(s): F14.20 - Cocaine dependence, uncomplicated - Follow-up Referral Minutes to complete discharge: 20 - AMA Did Patient Leave Against Medical Advice: No
[2019-01-24] MEDS: OLANZapine 5 MG TABLET PO PRN (17:59)
[2019-01-24] MEDS: THIAMINE HCL 100 MG TABLET (FP) PO SCH (21:51)
[2019-01-24] MEDS: OLANZapine 10 MG TABLET PO SCH (21:52)
--- NOTE | 2019-01-25 08:46 | PN ---
[facility] Progress Note Note: Psychiatric nurse practitioner note: Patient scheduled for discharge today. A 30 day prescription of Wellbutrin 75 BID @1000,1800 + [place] 300mg BID + Zyprexa 10mg HS was electronically sent to [facility], [address] [place] [address].
[2019-01-25] MEDS: carBAMazepine 200 MG TABLET PO SCH (09:00)
[2019-01-25] MEDS: PRENATAL VITAMINS W/ FOLIC ACID TABLET (FP) PO SCH (09:00)
[2019-01-25] MEDS: buPROPion HCL 75 MG TABLET PO SCH (09:00)
[2019-01-25] MEDS: LITHIUM CARBONATE 300 MG CAPSULE (FP) PO SCH (09:00)
== END 2019-01-25 09:10 | disposition home or self-care (01) | DRG 772 ==
LOC: YASAS 21:22 → Y3E 01-11 01:51
PROVIDERS: ADMIT Allergy & Immunology; ATTEND Allergy & Immunology
PROC: HZ42ZZZ Group Counseling for Substance Abuse Treatment, Cognitive-Behavioral (ICD-10-PCS; principal; 2019-01-11)
DX: F14.20 Cocaine dependence, uncomplicated (principal); F17.210 Nicotine dependence, cigarettes, uncomplicated; F43.10 Post-traumatic stress disorder, unspecified; F19.282 Other psychoactive substance dependence with psychoactive substance-induced sleep disorder; F25.9 Schizoaffective disorder, unspecified; F91.9 Conduct disorder, unspecified; F06.2 Psychotic disorder with delusions due to known physiological condition; R44.0 Auditory hallucinations; G40.909 Epilepsy, unspecified, not intractable, without status epilepticus; Z91.010 Allergy to peanuts; Z88.6 Allergy status to analgesic agent; Z62.810 Personal history of physical and sexual abuse in childhood; Z91.19 Patient's noncompliance with other medical treatment and regimen; Z91.5 Personal history of self-harm
CPT/HCPCS: 36415; 80053; 80178; 81003; 81025; 82962; 85027; 86593; 87389; 93005; 93010; Q0162

== ENCOUNTER 2019-01-13 01:56 | Emergency (ER) | payer OTHER ==
[2019-01-13 02:27] VITALS: TEMP 98; BMI 26.5
--- NOTE | 2019-01-13 02:56 | PDOC ---
History of Present Illness - General Chief Complaint: Seizure Stated Complaint: SEIZURE Time Seen by Provider: 01/13/19 02:21 History Source: Patient Exam Limitations: No Limitations - History of Present Illness Initial Comments: 01/13/19 03:11 23 yo F with a hx of seizure disorder (last seizure 2010; currently on tegretol) , PTSD, borderline personality disorder, and cocaine dependence (last use 2018; using since age 17) presents to the emergency department from [facility] ( receiving rehabilitation) for altered mental status episode that occurred at approximately 1 am per the patient. The patient states she remembers the event and denies LOC. Currently, she is asymptomatic and feels she is back at baseline. Denies the following: fever, chills, SOB, chest pain, headaches, nausea, vomiting, visual disturbance, abdominal pain, dysuria, hematuria, diarrhea, and leg pain/swelling Allergies: tylenol Past History - Past Medical History Allergies/Adverse Reactions: Allergies Allergy/AdvReac Type Severity Reaction Status Date / Time peanut AdvReac Severe Difficulty Verified 01/10/19 21:58 Breathing acetaminophen [From Tylenol] AdvReac Intermediate Swelling Verified 01/10/19 21: 58 Home Medications: Ambulatory Orders Carbamazepine [Tegretol -] 200 mg PO BID 01/10/19 [place] Carbonate [Eskalith -] 300 mg PO BID 01/10/19 Amox-Tr/K Cl [Augmentin - 875Mg Tablet] 1 tab PO BID #14 tablet 01/13/19 Anemia: No Asthma: No Cancer: No Cardiac Disorders: No CVA: No COPD: No CHF: No Dementia: No Diabetes: No GI Disorders: No Disorders: No HTN: No Hypercholesterolemia: No Liver Disease: No Seizures: Yes (Tegretol) Thyroid Disease: No - Immunization History Immunization Up to Date: No - Psycho Social/Smoking Cessation Hx Smoking History: Never smoked Have you smoked in the past 12 months: No Hx Alcohol Use: No Drug/Substance Use Hx: Yes (Cocaine) Substance Use Type: Cocaine Hx Substance Use Treatment: No Review of Systems - Review of Systems Able to Perform ROS?: Yes Is the patient limited Georgian proficient: No Constitutional: No: Chills, Diaphoresis, Fever, Weight Stable HEENTM: No: Eye Pain, Ear Pain, Nose Pain, Tinnitus, Throat Pain, Mouth Pain Respiratory: No: Cough, Shortness of Breath, Hemoptysis Cardiac (ROS): No: Chest Pain, Lightheadedness, Palpitations, Chest Tightness ABD/GI: No: Constipated, Diarrhea, Nausea, Poor Fluid Intake, Rectal Bleeding, Vomiting, Tarry Stools : No: Dysuria, Hematuria, Incontinence Musculoskeletal: No: Back Pain, Joint Pain, Neck Pain Integumentary: No: Bruising, Erythema, Flushing Neurological: No: Headache, Numbness, Tingling, Tremors Psychiatric: No: Change in Appetite Endocrine: No: Unexplained Weight Gain, Unexplained Weight Loss Hematologic/Lymphatic: No: Anemia *Physical Exam - Vital Signs Last Vital Signs Temp Pulse Resp BP Pulse Ox 98.0 F 72 14 102/70 100 01/13/19 02:15 01/13/19 02:15 01/13/19 02:15 01/13/19 02:15 01/13/19 02:15 - Physical Exam General Appearance: Yes: Nourished, Appropriately Dressed. No: Apparent Distress, Intoxicated HEENT: positive: EOMI, VALARIE, Normal ENT Inspection, Normal Voice, Symmetrical, TMs Normal, Pharynx Normal, Hearing Grossly Normal. negative: Pale Conjunctivae , Scleral Icterus (R), Scleral Icterus (L), Muffled/Hoarse voice, Pharyngeal Erythema, Tonsillar Exudate, Tonsillar Erythema, Rhinorrhea, Sinus Tenderness, Excessive drooling Neck: positive: Trachea midline, Supple. negative: Tender, Lymphadenopathy (R) , Lymphadenopathy (L), Tender lateral, Tender midline Respiratory/Chest: positive: Lungs Clear, Normal Breath Sounds. negative: Chest Tender, Respiratory Distress, Accessory Muscle Use, Paradoxal Breathing, Crackles, Rales, Rhonchi, Hyperresonant Cardiovascular: positive: Regular Rhythm, Regular Rate, S1, S2. negative: Systolic Murmur Gastrointestinal/Abdominal: positive: Normal Bowel Sounds, Flat, Soft. negative : Tender, Rebound, Tenderness, Hernia Lymphatic: negative: Adenopathy Musculoskeletal: positive: Normal Inspection. negative: CVA Tenderness, Vertebral Tenderness Extremity: positive: Normal Capillary Refill, Normal Inspection, Normal Range of Motion. negative: Tender, Swelling, Calf Tenderness Integumentary: positive: Normal Color, Dry, Warm. negative: Swelling, Ecchymosis Neurologic: positive: title i math tutor II-XII NML intact, Fully Oriented, Alert, Normal Mood/ Affect, Normal Response, Motor Strength 5/5. negative: Facial Droop, Sensory Deficit ED Treatment Course - LABORATORY CBC & Chemistry Diagram: 01/13/19 03:51 01/13/19 03:51 Medical Decision Making - Medical Decision Making 23 yo F with a hx of seizure disorder (last seizure 2010; currently on tegretol) , PTSD, borderline personality disorder, and cocaine dependence (last use 2018; using since age 17) presents to the emergency department from [facility] ( receiving rehabilitation) for altered mental status episode that occurred at approximately 1 am per the patient. Initial vitals: Initial Vital Signs Temp Pulse Resp BP Pulse Ox 98.0 F 72 14 102/70 100 01/13/19 02:15 01/13/19 02:15 01/13/19 02:15 01/13/19 02:15 01/13/19 02:15 Work up: patient is asymptomatic currently. unlikely to be a stroke as she has resolution of symptoms. patient will have labs and head ct and EKG. denies dysuria symptoms. Laboratory Tests 01/13/19 01/13/19 01/13/19 03:51 03:51 03:51 WBC 5.4 RBC 3.87 Hgb 10.7 Hct 34.0 MCV 87.8 MCH 27.7 MCHC 31.5 L RDW 12.8 Plt Count 303 MPV 7.4 L Absolute Neuts (auto) 1.8 Neutrophils % 32.6 L Lymphocytes % 47.5 H Monocytes % 11.6 H Eosinophils % 7.2 H Basophils % 1.1 Nucleated RBC % 0 Sodium 140 Potassium 4.5 Chloride 106 Carbon Dioxide 30 Anion Gap 4 L BUN 7.5 Creatinine 0.8 Est GFR (CKD-EPI)AfAm 118.76 Est GFR (CKD-EPI)NonAf 102.47 Random Glucose 91 Calcium 8.7 Magnesium 1.9 Total Bilirubin 0.1 L AST 14 L ALT 19 Alkaline Phosphatase 50 Total Protein 6.5 Albumin 2.9 L Serum , Qual Negative EKG: NSR without ST elevations or depressions. TW upright. 01/13/19 06:34 01/13/19 06:38 Discharge - Discharge Information Problems reviewed: Yes Clinical Impression/Diagnosis: Episode of abnormal behavior, Sinusitis Condition: Improved - Additional Discharge Information Prescriptions: Amox-Tr/K Cl [Augmentin - 875Mg Tablet] 1 tab PO BID #14 tablet - Follow up/Referral Referrals: [facility] [place] [Provider Group] - Patient Discharge Instructions Patient Printed Discharge Instructions: DI for Seizure Disorder -- Adult Additional Instructions: You were evaluated in our emergency department after your brief resolved abnormal behavior episode. Please follow up with your primary medical doctor within 1 week after discharge. Please return to the emergency department if you have worsening or new concerning symptoms. - Post Discharge Activity
--- NOTE | 2019-01-13 03:49 | PDOC ---
Attending Attestation - Resident Resident Name: FranciBlayne - ED Attending Attestation I have performed the following: I have examined & evaluated the patient, The case was reviewed & discussed with the resident, I agree w/resident's findings & plan - HPI HPI: 01/13/19 06:33 Pt comes fro [facility] for seizure like activity and evaluation. Pt has no complaints when she gets here and she wants to go back to the rehab center. - Physicial Exam PE: 01/13/19 06:33 Agree with resident exam. 01/13/19 21:54 Hear lungs normal Abd NT ND afebrile; neuro intact - Medical Decision Making 01/13/19 06:32 Patient Name: JEREMIAS MCCLURE THIS IS A PRELIMINARY REPORT FROM [facility] DATE OF SERVICE: 2019-01-13 04:47:29 IMAGES: 225 EXAM: HEAD CT WITHOUT CONTRAST HISTORY: 23-Year-Old Female With Altered Mental Status. COMPARISON: None. FINDINGS: No acute intracranial hemorrhage mass effect or midline shift. Richards-white differentiation is maintained. Ventricles sulci and basilar cisterns appear unremarkable. Calvarium is intact. Mild to moderate mucosal thickening in the sinuses. The mastoid air cells are clear. IMPRESSION No acute intracranial hemorrhage mass effect or midline shift. [id number] sinusitis. This CT exam was performed using one or more of the following dose reduction techniques: automated exposure control, adjustment of the mA and/or kV according to patient size, use of iterative reconstruction technique. Back to [facility]; Day team will send pateint back
[2019-01-13 04:00] LABS: BASO % 1.1 % (0-2.0); EOS % 7.2 % (0-4.5); HEMOGLOBIN 10.7 GM/dL (10.7-15.3); LYMPH % 47.5 % (8-40); MCH 27.7 pg (25.7-33.7); MCHC 31.5 g/dl (32.0-36.0); MEAN CELL VOLUME 87.8 fl (80-96); MEAN PLT VOLUME 7.4 fl (7.5-11.1); MONO % 11.6 % (3.8-10.2); NEUT % 32.6 % (42.8-82.8); PLATELET COUNT 303 K/MM3 (134-434); RBC 3.87 M/mm3 (3.60-5.2); RDW 12.8 % (11.6-15.6); WHITE BLOOD COUNT 5.4 K/mm3 (4.0-10.0)
[2019-01-13 04:18] LABS: ALBUMIN 2.9 g/dl (3.4-5.0); BILIRUBIN,TOTAL 0.1 mg/dL (0.2-1); BLOOD UREA NITROGEN 7.5 mg/dL (7-18); CALCIUM 8.7 mg/dL (8.5-10.1); CREATININE 0.8 mg/dL (0.55-1.3); MAGNESIUM 1.9 mg/dL (1.8-2.4); POTASSIUM 4.5 mmol/L (3.5-5.1); TOT PROT 6.5 g/dl (6.4-8.2)
[2019-01-13 06:25] VITALS: BP 110/82; PULSE 80
[2019-01-13] MEDS ORDERED: AMOX TR/POT CLAV 875MG/125MG TABLETS (FP) PO ONE (06:35)
[2019-01-13] MEDS ORDERED: AMOX TR/POT CLAV 875MG/125MG TABLETS (FP) ONE (06:41)
--- NOTE | 2019-01-14 00:56 | EKG ---
Test Reason : Blood Pressure : / mmHG Vent. Rate : 074 BPM Atrial Rate : 074 BPM P-R Int : 140 ms QRS Dur : 070 ms QT Int : 372 ms P-R-T Axes : 078 081 063 degrees QTc Int : 412 ms NORMAL SINUS RHYTHM WITH SINUS ARRHYTHMIA NORMAL ECG WHEN COMPARED WITH ECG OF 11-JAN-2019 03:35, NO SIGNIFICANT CHANGE WAS FOUND Confirmed by YSABEL GOLDBERG MD ([id number]) on 01/14/2019 12:56:09 AM Referred By: Confirmed By:YSABEL GOLDBERG MD
== END 2019-01-13 06:34 | disposition home or self-care (01) ==
LOC: JER 01:56
DX: R46.89 Other symptoms and signs involving appearance and behavior (principal); J32.9 Chronic sinusitis, unspecified; G40.909 Epilepsy, unspecified, not intractable, without status epilepticus; F43.10 Post-traumatic stress disorder, unspecified; F60.9 Personality disorder, unspecified; F14.20 Cocaine dependence, uncomplicated; F17.210 Nicotine dependence, cigarettes, uncomplicated
CPT/HCPCS: 36415; 70450-TC; 71045-TC-FY; 80053; 83735; 84703; 85025; 93005; 93010; 99283-25